=== PATIENT | female | born 1940 | race Caucasian/White ===

== ENCOUNTER → 2017-03-17 | Day surgery (SDC) | payer MEDICARE, OTHER ==
[~2017-03-17] VITALS: Ht 167.6 cm; Wt 125.2 kg
[~2017-03-17] MED LIST: AMIT50TA3 PO; ASPI81TA5 PO; CHLORHEXIDINE GLUCONATE 2 % 1 PACK (2 CLOTHS) TOPICAL PRN; DEXI60CA2 PO; DO NOT ADM ANY ANTICOAGULANT DRUGS PRN; EPINEPHrine HCL (1:1000) 1 MG/ML VIAL ONE; EVIS60TA PO; HYDR12.56 PO; INSULIN HUMAN REGULAR 1,000 UNITS/10 ML VIAL SQ PRN; IRBE75TA24 PO; LACTATED RINGER'S 1000 ML IV PRN; LEVO150T7 PO; LIDOCAINE HCL 2% 50 ML VIAL ONE; LYRI75CA PO; METOPROLOL TARTRATE 25 MG TAB PO PRN; NAME10TA PO; PHENYLEPH/NS 1000 MCG/10 ML SYR IV ONE; PLAV75TA29 PO; POVIDONE IODINE 5% (ANTISEPSIS KIT) 4 APPLICATIONS EACH NARE PRN; PROPOFOL 200 MG/20 ML AMP IV ONE; SODIUM CHLORID 0.9% 500 ML IV PRN; SODIUM CHLORIDE 0.9% 20 ML VIAL ONE; TOPR50TA PO; VYTO10TA25 PO; ePHEDrine/NS 25 MG/5 ML SYR IV ONE; fentaNYL CITRATE 250 MCG/5 ML AMP ONE
[2017-03-17 06:15] VITALS: BP 144/82; PULSE 75; RESP 24; TEMP 97.8; O2SAT 97
[2017-03-17 06:32] LABS: AUTOMATED NEUTROPHIL # 6.6 TH/MM3 (1.8-7.7); BASOPHIL % 0.4 % (0.0-2.0); EOSINOPHIL # 0.2 TH/MM3 (0-0.4); EOSINOPHIL % 1.7 % (0.0-4.0); HEMATOCRIT 36.8 % (35.0-46.0); HEMO FLAGS DIFF FINAL; LYMPH % 26.6 % (9.0-44.0); LYMPHOCYTE # 2.7 TH/MM3 (1.0-4.8); MEAN CELL VOLUME 81.2 FL (80.0-100.0); MEAN CORPUSCULAR HEMOGLOBIN 26.6 PG (27.0-34.0); MEAN CORPUSCULAR HGB CONC 32.8 % (32.0-36.0); NEUT % 65.3 % (16.0-70.0); PLATELET COUNT 248 TH/MM3 (150-450); RED BLOOD COUNT 4.53 MIL/MM3 (4.00-5.30); RED CELL DISTRIBUTION WIDTH 16.2 % (11.6-17.2); WHITE BLOOD COUNT 10.1 TH/MM3 (4.0-11.0)
[2017-03-17 06:35] LABS: PROTHROMBIN TIME - PATIENT 11.2 SEC (9.8-11.6)
--- NOTE | 2017-03-17 07:59 | RADRPT ---
EXAM DATE/TIME: 03/17/2017 07:41 [facility] COMPARISON: No previous studies available for comparison. [facility], US LEG, LEFT VENOUS DOPPLER, February 08, 2017 INDICATIONS : Left leg swelling. MEDICAL HISTORY : Hypercholesterolemia. Hypertension. Gastroesophageal reflux disease. Hypothyroidism. Syncope. Bart nary artery disease. Anticoagulant therapy. Endometriosis. COPD. Dementia. Liver cysts. Hemochromato sis. Guillain barre. SURGICAL HISTORY : Appendectomy. Hysterectomy. Liver biopsy. ENCOUNTER: Initial ACUITY: 3 days PAIN SCORE: 6/10 LOCATION: Left leg. TECHNIQUE: Venous ultrasound of the leg was performed from the inguinal ligament to the proximal calf. Real-beny e, color Doppler and spectral tracing, compression and augmentation techniques were used. FINDINGS: There is normal compressibility of the deep venous system from the inguinal region to the proximal ca lf. No echogenic clot is seen in the lumen of the common femoral, femoral, popliteal, and posterior tibial veins. There is a normal response of the venous system to proximal and distal augmentation an d respiration. CONCLUSION: No DVT. Víctor Schneider MD on March 17, 2017 at 7:57 Board Certified Radiologist. This report was verified electronically.
[2017-03-17 10:40] VITALS: BP 119/67; PULSE 58; RESP 22; TEMP 98; O2SAT 98
--- NOTE | 2017-03-17 11:37 | MR ---
cc: STEVE WILSON M.D. DATE: 03/17/2017 PROCEDURE Fiberoptic bronchoscopy, flexible. REASON FOR BRONCHOSCOPY Right upper lobe mass malignancy suspect. DETAILS OF PROCEDURE Fiberoptic bronchoscopy performed via endotracheal tube. Lower trachea appears normal. Laverne sharp. Right main stem bronchus, right upper, middle and lower lobe inspected. No obstructive pathology or mass lesion seen. Left main lung bronchus patent. Left upper and lower lobes without obstruction or mass lesion. Washings obtained from the right upper lobe and sent for routine, TB, fungal cultures and cytological exam. Cytological brush biopsies obtained as well for cytological exam. Procedure well-tolerated. Patient transferred to Recovery in stable condition. IMPRESSION 1. Mild tracheobronchitis. 2. No obstruction, no mass lesion. 3. Samples obtained as above. 4. Procedure well-tolerated. 5. Patient transferred to Recovery in stable condition. MD RAJIV Mishra/RENEE /11:16 AM /11:22 AM
--- NOTE | 2017-03-17 14:08 | EKG ---
Date Performed: 03/17/2017 Time Performed: 06:27:10 PTAGE: 77 years EKG: Sinus rhythm . Compared to previous tracing sinus rhythm has replaced atrial fibrillation Normal ECG PREVIOUS TRACING : 03/09/2015 03.01 DOCTOR: Joshua Santa Interpretating Date/Time 03/17/2017 14:08:04
== END | disposition home or self-care (01) ==
LOC: HSDC 05:31
PROVIDERS: ATTEND Internal Medicine Sleep Medicine
DX: R91.8 Other nonspecific abnormal finding of lung field (principal); M79.89 Other specified soft tissue disorders; I10 Essential (primary) hypertension; I25.10 Atherosclerotic heart disease of native coronary artery without angina pectoris; J44.9 Chronic obstructive pulmonary disease, unspecified; E78.00 Pure hypercholesterolemia, unspecified; E03.9 Hypothyroidism, unspecified; R55 Syncope and collapse; K21.9 Gastro-esophageal reflux disease without esophagitis; F03.90 Unspecified dementia, unspecified severity, without behavioral disturbance, psychotic disturbance, mood disturbance, and anxiety; G47.30 Sleep apnea, unspecified; G61.0 Guillain-Barre syndrome; E66.9 Obesity, unspecified; Z68.41 Body mass index [BMI] 40.0-44.9, adult; Z01.810 Encounter for preprocedural cardiovascular examination; Z87.891 Personal history of nicotine dependence; Z79.01 Long term (current) use of anticoagulants; Z79.82 Long term (current) use of aspirin; Z79.899 Other long term (current) drug therapy
CPT/HCPCS: 00520; 31623; 85025; 85610; 85730; 87015; 87070; 87102; 87116; 87205; 87206; 88112; 88305; 93005; 93971; J0171; J2370; J3010; J7120

== ENCOUNTER 2017-04-06 07:41 | Day surgery (SDC) | payer MEDICARE, OTHER ==
[~2017-04-06] VITALS: Ht 167.6 cm; Wt 124.1 kg
[2017-04-06] VITALS (10 sets, daily range): BP systolic 106–158; BP diastolic 59–85; PULSE 60–71; RESP 18–20; TEMP 97.6; O2SAT 94–98
[~2017-04-06 07:41] MED LIST changes: -CHLORHEXIDINE GLUCONATE 2 % 1 PACK (2 CLOTHS) TOPICAL PRN; -DO NOT ADM ANY ANTICOAGULANT DRUGS PRN; -EPINEPHrine HCL (1:1000) 1 MG/ML VIAL ONE; -INSULIN HUMAN REGULAR 1,000 UNITS/10 ML VIAL SQ PRN; -LACTATED RINGER'S 1000 ML IV PRN; -LIDOCAINE HCL 2% 50 ML VIAL ONE; -METOPROLOL TARTRATE 25 MG TAB PO PRN; -PHENYLEPH/NS 1000 MCG/10 ML SYR IV ONE; -POVIDONE IODINE 5% (ANTISEPSIS KIT) 4 APPLICATIONS EACH NARE PRN; -PROPOFOL 200 MG/20 ML AMP IV ONE; -SODIUM CHLORID 0.9% 500 ML IV PRN; -SODIUM CHLORIDE 0.9% 20 ML VIAL ONE; -ePHEDrine/NS 25 MG/5 ML SYR IV ONE; -fentaNYL CITRATE 250 MCG/5 ML AMP ONE
[2017-04-06 08:54] LABS: APTT (PATIENT) 25.1 SEC (24.3-30.1); PROTHROMBIN TIME - PATIENT 11.1 SEC (9.8-11.6)
[2017-04-06] MEDS ORDERED: LIDOCAINE HCL 1% 20 ML VIAL ONE (09:00)
[2017-04-06 09:04] LABS: AUTOMATED NEUTROPHIL # 5.4 TH/MM3 (1.8-7.7); BASOPHIL % 0.5 % (0.0-2.0); EOSINOPHIL # 0.2 TH/MM3 (0-0.4); EOSINOPHIL % 2.4 % (0.0-4.0); HEMATOCRIT 39.5 % (35.0-46.0); HEMO FLAGS DIFF FINAL; LYMPH % 27.8 % (9.0-44.0); LYMPHOCYTE # 2.4 TH/MM3 (1.0-4.8); MEAN CELL VOLUME 81.6 FL (80.0-100.0); MEAN CORPUSCULAR HEMOGLOBIN 26.3 PG (27.0-34.0); MEAN CORPUSCULAR HGB CONC 32.2 % (32.0-36.0); MONO % 5.6 % (0.0-8.0); NEUT % 63.7 % (16.0-70.0); PLATELET COUNT 244 TH/MM3 (150-450); RED BLOOD COUNT 4.85 MIL/MM3 (4.00-5.30); RED CELL DISTRIBUTION WIDTH 16.6 % (11.6-17.2); WHITE BLOOD COUNT 8.5 TH/MM3 (4.0-11.0)
[2017-04-06] MEDS ORDERED: MIDAZOLAM HCL 2 MG/2 ML VIAL ONE ×2 (09:39→10:38)
[2017-04-06] MEDS ORDERED: oxyCODONE/ACETAMINOPHEN 5 MG/325 MG TAB PO PRN (11:00)
--- NOTE | 2017-04-06 11:36 | RADRPT ---
EXAM DATE/TIME: 04/06/2017 11:07 [facility] COMPARISON: No previous studies available for comparison. INDICATIONS : Post lung biopsy. Evaluate for pneumothorax. MEDICAL HISTORY : Hypercholesterolemia. Hypertension. Gastroesophageal reflux disease. Hypothyroidism. Syncope. Coronar y artery disease. Anticoagulant therapy. Endometriosis. COPD. Dementia. Liver cysts. Hemochromatosis. Guillain-Archer. SURGICAL HISTORY : Appendectomy. Hysterectomy. Liver biopsy. ENCOUNTER: Subsequent ACUITY: 1 day PAIN SCORE: 4/10 LOCATION: Bilateral chest FINDINGS: The known tiny right-sided pneumothorax is very difficult to visualize on a plain film. The heart is normal. No focal alveolar consolidations noted. CONCLUSION: 1. Known tiny right-sided pneumothorax is difficult to identify on the plain film. Frandy Browning MD on April 06, 2017 at 11:25 Board Certified Radiologist. This report was verified electronically.
--- NOTE | 2017-04-06 13:44 | RADRPT ---
EXAM DATE/TIME: 04/06/2017 13:21 [facility] COMPARISON: CHEST EXPIRATION ONLY, April 06, 2017, 11:07. INDICATIONS : Post lung biopsy. MEDICAL HISTORY : Hypercholesterolemia. Hypertension. Gastroesophageal reflux disease. Hypothyroidism. Syncope. Coronar y artery disease. Anticoagulant therapy. Endometriosis. COPD. Dementia. Liver cysts. Hemochromatosis. Guillain-[place]. SURGICAL HISTORY : Appendectomy. Hysterectomy. Liver biopsy. ENCOUNTER: Subsequent ACUITY: 1 day PAIN SCORE: 0/10 LOCATION: Right chest FINDINGS: No appreciable pneumothorax is identified on the plain film status post right lung biopsy. Nodular d ensity is noted along the lateral aspect of the right mid lung field consistent with the patient's kn own nodule in this location. The heart is stable. CONCLUSION: 1. No appreciable pneumothorax identified status post right lung biopsy. 2. Stable right mid lung field nodule. Frandy Browning MD on April 06, 2017 at 13:33 Board Certified Radiologist. This report was verified electronically.
--- NOTE | 2017-04-06 15:32 | RADRPT ---
EXAM DATE/TIME: 04/06/2017 09:56 [facility] COMPARISON: No previous studies available for comparison. INDICATIONS : Right lung mass. SEDATION TIME: 60 minutes BIOPSY SITE: Right lung MEDICATION(S): 1.) 3 mg midazolam (Versed) IV 2.) 150 mcg fentanyl (Sublimaze) IV DEVICE(S): 1.) 20 gauge Temno core biopsy needle 15cm MEDICAL HISTORY : Hypertension. Smoker SURGICAL HISTORY : Hysterectomy. ENCOUNTER: Initial ACUITY: 1 day PAIN SCORE: 0/10 LOCATION: Right chest A total of one core specimen(s) were obtained and sent to the laboratory for pathologic evaluation. PROCEDURE: 1. CT guided lung biopsy. 2. Conscious sedation with continuous EKG and oximetry monitoring. Prior to the procedure informed consent was obtained. Any appropriate prior imaging studies were rev iewed. Using automated exposure control and adjustment of the mA and/or kV according to patient size, radiation dose was kept as low as reasonably achievable to obtain optimal diagnostic quality images. DICOM format image data is available electronically for review and comparison. The site was prepped in a sterile fashion. Full sterile technique was used, including cap, mask, christian rile gloves and gown and a large sterile sheet. Hand hygiene and 2% chlorhexidine and/or betadine/al cohol prep was utilized per protocol for cutaneous antisepsis. The skin and subcutaneous tissues wer e infiltrated with local anesthetic solution. With CT guidance the previously identified target was localized. Biopsy was performed using the presc ribed needle as above. Adequate hemostasis was obtained with compression at the puncture site. Follow-up CT scan reveals a tiny pneumothorax and minimal geri-biopsy hemorrhage. Conscious sedation was performed with the prescribed dosages and duration as above in the presence of an independent trained radiology nurse to assist in the monitoring of the patient. EKG and oximetry remained stable throughout the procedure. The patient tolerated the procedure well and there were no complications. The patient was sent to Radiology Outpatient Unit in stable condition. CONCLUSION: Uncomplicated CT guided biopsy. Frandy Browning MD on April 06, 2017 at 15:30 Board Certified Radiologist. This report was verified electronically.
== END 2017-04-06 15:00 | disposition home or self-care (01) ==
LOC: HRAD 07:41 → HRIP 07:47 → HRAD 15:00
PROVIDERS: ATTEND Internal Medicine Sleep Medicine
DX: R91.8 Other nonspecific abnormal finding of lung field (principal); F17.210 Nicotine dependence, cigarettes, uncomplicated; E78.00 Pure hypercholesterolemia, unspecified; I10 Essential (primary) hypertension; K21.9 Gastro-esophageal reflux disease without esophagitis; E03.9 Hypothyroidism, unspecified; R55 Syncope and collapse; I25.10 Atherosclerotic heart disease of native coronary artery without angina pectoris; Z79.01 Long term (current) use of anticoagulants; J44.9 Chronic obstructive pulmonary disease, unspecified
CPT/HCPCS: 32405; 71010; 77012; 85025; 85610; 85730; 88305; J2250; J3010

== ENCOUNTER 2017-04-24 07:30 | Day surgery (SDC) | payer MEDICARE, OTHER ==
[~2017-04-24] VITALS: Ht 167.6 cm; Wt 124.1 kg
[2017-04-24] VITALS (7 sets, daily range): BP systolic 104–150; BP diastolic 50–81; PULSE 60–68; RESP 17–20; TEMP 97.5–98; O2SAT 95–99
[2017-04-24 08:33] LABS: AUTOMATED NEUTROPHIL # 4.3 TH/MM3 (1.8-7.7); BASOPHIL % 0.6 % (0.0-2.0); EOSINOPHIL # 0.2 TH/MM3 (0-0.4); EOSINOPHIL % 3.1 % (0.0-4.0); HEMATOCRIT 37.3 % (35.0-46.0); HEMO FLAGS DIFF FINAL; LYMPH % 30.2 % (9.0-44.0); LYMPHOCYTE # 2.2 TH/MM3 (1.0-4.8); MEAN CORPUSCULAR HEMOGLOBIN 26.3 PG (27.0-34.0); MEAN CORPUSCULAR HGB CONC 32.5 % (32.0-36.0); NEUT % 59.1 % (16.0-70.0); PLATELET COUNT 258 TH/MM3 (150-450); RED CELL DISTRIBUTION WIDTH 16.2 % (11.6-17.2); WHITE BLOOD COUNT 7.3 TH/MM3 (4.0-11.0)
[2017-04-24 08:44] LABS: APTT (PATIENT) 25.3 SEC (24.3-30.1); INTERNATIONAL NORMALIZED RATIO 0.9 RATIO; PROTHROMBIN TIME - PATIENT 10.3 SEC (9.8-11.6)
[2017-04-24] MEDS ORDERED: SODIUM CHLOR 0.9% 1000 ML IV SCH (09:00)
[2017-04-24] MEDS ORDERED: MIDAZOLAM HCL 2 MG/2 ML VIAL ONE (09:44)
--- NOTE | 2017-04-24 10:43 | PD.RAD ---
Post CT Procedure Prog Note Pre Procedure Diagnosis: (1) Lung mass Post Procedure Diagnosis: (1) Lung mass Procedure Date: Apr 24, 2017 Supervising Radiologist: Kash Faust Anesthesia: Conscious Sedation Plan of Activity Patient to Unit: [facility] Patient Condition: Good Additional Comments: 3 x 20g cores. See PACS Report for procedural detail/treatment Kash Faust MD Apr 24, 2017 10:43
[2017-04-24] MEDS ORDERED: oxyCODONE/ACETAMINOPHEN 5 MG/325 MG TAB PO PRN (10:45)
--- NOTE | 2017-04-24 11:17 | RADRPT ---
EXAM DATE/TIME: 04/24/2017 10:57 [facility] COMPARISON: CHEST EXPIRATION ONLY, April 06, 2017, 11:07. CHEST EXPIRATION ONLY, April 06, 2017, 13:21. INDICATIONS : Post right lung biopsy. MEDICAL HISTORY : Hypercholesterolemia. Hypertension. Gastroesophageal reflux disease. SURGICAL HISTORY : Hysterectomy. Appendectomy. Liver biopsy ENCOUNTER: Initial ACUITY: 1 day PAIN SCORE: 7/10 LOCATION: Right Chest. FINDINGS: The heart is at the upper limits of normal in size. There is no pneumothorax identified. There are pa tchy areas of bibasilar interstitial infiltrates. This appears similar to previous of 04/06/17. The visualized bony structures demonstrate degenerative changes within the shoulders bilaterally. CONCLUSION: 1. No pneumothorax identified. Interstitial fibrotic changes in the lung bases. Asher Rizzo MD on April 24, 2017 at 11:14 Board Certified Radiologist. This report was verified electronically.
--- NOTE | 2017-04-24 11:26 | RADRPT ---
EXAM DATE/TIME: 04/24/2017 10:01 [facility] COMPARISON: CT NEEDLE BIOPSY LUNG, RIGHT, April 06, 2017, 9:56. INDICATIONS : Right lung mass SEDATION TIME: 45 minutes BIOPSY SITE: History of right lung mass status post nondiagnostic CT-guided biopsy 04/06/2017. Patient presents for repeat biopsy attempt. MEDICATION(S): 1.) 2 mg midazolam (Versed) IV 2.) 100 mcg fentanyl (Sublimaze) IV DEVICE(S): 1.) 18 gauge Mckinney blunt needle 2.) 20 gauge Temno core biopsy needle MEDICAL HISTORY : Hypertension. SURGICAL HISTORY : Hysterectomy. ENCOUNTER: Initial ACUITY: 1 day PAIN SCORE: LOCATION: A total of three core specimen(s) were obtained and sent to the laboratory for pathologic evaluation. PROCEDURE: 1. CT guided lung biopsy. 2. Conscious sedation with continuous EKG and oximetry monitoring. 3. EKG and oximetry remained stable throughout the procedure. Prior to the procedure informed consent was obtained. Any appropriate prior imaging studies were rev iewed. Using automated exposure control and adjustment of the mA and/or kV according to patient size, radiation dose was kept as low as reasonably achievable to obtain optimal diagnostic quality images. DICOM format image data is available electronically for review and comparison. The site was prepped in a sterile fashion. Full sterile technique was used, including cap, mask, christian rile gloves and gown and a large sterile sheet. Hand hygiene and 2% chlorhexidine and/or betadine/al cohol prep was utilized per protocol for cutaneous antisepsis. The skin and subcutaneous tissues wer e infiltrated with local anesthetic solution. With CT guidance the previously identified target was localized. Biopsy was performed using the presc ribed needle as above. Adequate hemostasis was obtained with compression at the puncture site. Follow-up CT scan reveals no significant pneumothorax. Conscious sedation was performed with the prescribed dosages and duration as above in the presence of an independent trained radiology nurse to assist in the monitoring of the patient. EKG and oximetry remained stable throughout the procedure. The patient tolerated the procedure well and there were no complications. The patient was sent to Radiology Outpatient Unit in stable condition. CONCLUSION: 1. Percutaneous CT-guided 20-gauge core biopsies of peripheral right upper lobe lung mass. In total, 4 core biopsies were obtained. Kash Faust MD on April 24, 2017 at 11:22 Board Certified Radiologist. This report was verified electronically.
--- NOTE | 2017-04-24 13:53 | RADRPT ---
EXAM DATE/TIME: 04/24/2017 13:01 [facility] COMPARISON: CT NEEDLE BIOPSY LUNG, RIGHT, April 24, 2017, 10:01. CHEST EXPIRATION ONLY, April 24, 2017, 10:57. INDICATIONS : Post right lung biopsy. MEDICAL HISTORY : Hypercholesterolemia. Hypertension. Gastroesophageal reflux disease. SURGICAL HISTORY : Appendectomy. Hysterectomy. Liver biopsy. ENCOUNTER: Initial ACUITY: 1 day PAIN SCORE: 0/10 LOCATION: Bilateral chest FINDINGS: The heart is mildly enlarged. There mild chronic interstitial changes. No pneumothorax is identified. The bony structures are grossly intact. CONCLUSION: 1. No pneumothorax identified following right lung biopsy. Asher Rizzo MD on April 24, 2017 at 13:51 Board Certified Radiologist. This report was verified electronically.
== END 2017-04-24 14:59 | disposition home or self-care (01) ==
LOC: HRAD 07:30 → HRIP 07:31 → HRAD 14:59
DX: C34.11 Malignant neoplasm of upper lobe, right bronchus or lung (principal); R91.8 Other nonspecific abnormal finding of lung field
CPT/HCPCS: 32405; 71010; 77012; 85025; 85610; 85730; 88305; 88341; 88342; J2250; J3010; J7030